=== PATIENT | female | born 1965 | race Two or more races ===

== ENCOUNTER 2018-11-07 02:01 | Emergency (ER) | payer BC, OTHER ==
[~2018-11-07] VITALS: Ht 160 cm; Wt 72.6 kg
[2018-11-07 02:05] VITALS: BP_SYST 162
[2018-11-07] MEDS ORDERED: DIPH-TET-PERTUS Vaccine 0.5 ML VIAL (ADACEL) IM ONE (02:30)
[2018-11-07] MEDS ORDERED: LIDOCAINE 1% 10 MG/ML, 20 ML MDV IJ ONE (02:30)
[2018-11-07 03:15] VITALS: BP_SYST 136
== END 2018-11-07 03:15 | disposition home or self-care (01) ==
LOC: SED 02:01
DX: S61.012A Laceration without foreign body of left thumb without damage to nail, initial encounter (principal); I10 Essential (primary) hypertension; W26.0XXA Contact with knife, initial encounter; Y93.89 Activity, other specified; Y92.89 Other specified places as the place of occurrence of the external cause; Y99.8 Other external cause status
CPT/HCPCS: 12001; 90471; 90715; 99283; J2001